=== PATIENT | male | born 1980 | race Caucasian/White ===

== ENCOUNTER → 2022-05-23 12:15 | Outpatient (CLI) | payer OTHER, SELFPAY ==
[2022-05-23 12:49] LABS: Hemoglobin A1C 7.1 % (4.0-6.0)
== END ==
PROVIDERS: PCP Family Medicine; Visit Provider Family Medicine
DX: R81 Glycosuria (principal); R73.9 Hyperglycemia, unspecified
CPT/HCPCS: 36415; 83036